=== PATIENT | male | born 1995 | race Caucasian/White ===

== ENCOUNTER 2019-07-04 17:58 | Emergency (ER) | payer OTHER ==
[~2019-07-04] VITALS: Ht 185.4 cm; Wt 76.2 kg
--- NOTE | 2019-07-04 18:17 | NUR ---
PT AMBULATED BACK TO ROOM, RESTING ON GURNEY IN GOWN, NAD, DENIES ADDITIONAL NEEDS, CALL LIGHT ON LAP, EVEN AND UNLABORED RESPIRATIONS, FULL SENTENCES NO SOB NOTED, WCTM.
[2019-07-04] MEDS ORDERED: PROPARACAINE OPHTH 0.5%, 15ML ONE (18:20)
[2019-07-04] MEDS ORDERED: FLUORESCEIN OPHTHALMIC 1 MG STRIP ONE (18:20)
[2019-07-04] MEDS ORDERED: FLUORESCEIN OPHTHALMIC 1 MG STRIP EACHEYE ONE (18:30)
[2019-07-04] MEDS ORDERED: PROPARACAINE OPHTH 0.5%, 15ML EACHEYE ONE (18:30)
--- NOTE | 2019-07-04 19:13 | NUR ---
REHONG FROM BALTAZAR BELL. AT BEDSIDE. OPTHOMOLOGY TO COME SEE PT
--- NOTE | 2019-07-04 19:13 | NUR ---
bedside report to Valorie BELL, pt care transferred at this time.
--- NOTE | 2019-07-04 21:01 | NUR ---
Patient given discharge instructions and they have confirmed that they understand the instructions. Patient ambulatory with steady gait.
[2019-07-04 21:04] VITALS: BP 127/72
== END 2019-07-04 21:06 | disposition home or self-care (01) ==
LOC: ED 19:35
DX: S05.11XA Contusion of eyeball and orbital tissues, right eye, initial encounter (principal); H11.33 Conjunctival hemorrhage, bilateral; R51 Headache; X58.XXXA Exposure to other specified factors, initial encounter; Y92.89 Other specified places as the place of occurrence of the external cause; Y99.8 Other external cause status; Y93.89 Activity, other specified
CPT/HCPCS: 99283